=== PATIENT | female | born 1995 | race Caucasian/White ===

== ENCOUNTER 2017-10-17 12:11 | Emergency (ER) | payer MEDICAID ==
[~2017-10-17] VITALS: Ht 157.5 cm; Wt 74.9 kg
[~2017-10-17 12:11] MED LIST: CEPH-443 PO; IBUP-1542 PO; PREN1TAB9 PO
[2017-10-17 12:15] VITALS: Ht 157.5 cm; Wt 74.9 kg
--- NOTE | 2017-10-17 13:24 | ERD ---
ER Documentation Chief Complaint Chief Complaint Complains of dizziness x 2 days HPI 22y/o female patient with past medical history of positional vertigo since age 10, presents to the emergency department with her c/o sudden onset of dizziness, described as everything is spinning around, constant, that started 1 day ago. The symptoms are probably caused by allergies and cold and are associated with mild nausea. Aggravating factors: Sudden changes in position. Alleviating factors: eyes closed. Denies fever, chills, N/V/D. Positive history of previous episodes. Treatment attempted: None. Previous evaluation: None. ROS SYSTEMIC symptoms: no fever, chills, no night sweats, no weight loss EYE symptoms: No blurred vision, no eye discharge OTOLARYNGEAL symptoms: No hearing loss. No ear pain, no sore throat CARDIOVASCULAR symptoms: No chest pain or discomfort, no palpitations. PULMONARY symptoms: No dyspnea, no cough, no wheezing. GASTROINTESTINAL symptoms: No abdominal pain, no nausea, no vomiting, no diarrhea MUSCULOSKELETAL symptoms: No arthralgias, no muscle aches. NEUROLOGY symptoms: No confusion, no syncope, no numbness or tingling. SKIN no rashes Medications Home Meds Active Scripts Montelukast Sodium* (Montelukast Sodium*) 10 Mg Tablet, 10 MG PO QHS, #90 TAB Prov:PEYTON ZAMORA MD 10/17/17 Fluticasone Propionate* (Fluticasone Propionate* Nasal) 50 Mcg/[place] - 16 Gm [place].susp, 1 SPRAY NASAL BID, #1 BOTTLE TO EACH NOSTRIL Prov:PEYTON ZAMORA MD 10/17/17 Lorazepam* (Ativan*) 0.5 Mg Tablet, 0.5 MG PO Q8 for dizziness, #10 TAB Prov:PEYTON ZAMORA MD 10/17/17 Meclizine Hcl* (Antivert*) 12.5 Mg Tab, 12.5 MG PO Q6H Y for DIZZINESS, #30 TAB Prov:PEYTON ZAMORA MD 10/17/17 Ibuprofen* (Motrin*) 600 Mg Tab, 600 MG PO Q6, #20 TAB Prov:JUAN GARCIA PA-C 09/09/15 Cephalexin* (Keflex*) 500 Mg Capsule, 500 MG PO QID for 7 Days, CAP Prov:JUAN GARCIA PA-C 09/09/15 Reported Medications Vits W-Ca,Fe,Fa(<1MG) ( #2) 1 Tab Tablet, 1 TAB PO 02/06/14 Allergies Allergies: Coded Allergies: No Known Allergies (Unverified Allergy, Unknown, 09/09/15) PMhx/Soc History of Surgery: No Anesthesia Reaction: No Hx Neurological Disorder: No Hx Respiratory Disorders: No Hx Cardiac Disorders: No Hx Psychiatric Problems: No Hx Miscellaneous Medical Probl: No Hx Alcohol Use: No Hx Substance Use: No Hx Tobacco Use: No Smoking Status: Never smoker Physical Exam Vitals Vital Signs Date Time Temp Pulse Resp B/P Pulse Ox O2 Delivery O2 Flow Rate FiO2 10/17/17 12:15 97.9 79 20 118/68 98 Physical Exam Patient is in no acute distress, vital signs stable. Alert and fully oriented. EYES: PERRLA, EOMI, Sclera and conjunctiva appear normal. EARS: Canals clear, tympanic membranes WNL THROAT: Normal oropharynx. NECK: Supple, No lymphadenopathy. Full ROM without pain or tenderness. HEART: RRR, no rubs, murmurs, clicks or gallops. LUNGS: Clear to auscultation. ABDOMEN: Soft, non-tender without masses or hepatosplenomegaly. EXTREMITIES: No edema bilaterally. MUSC: Full ROM, no deformity, normal back exam. Neuro: Cranial nerves grossly intact, no motor or sensory deficit Procedures/MDM 22y/o male patient with history of positional vertigo, presents to the ED c/o spinning sensation is started today. Vital signs stable, Physical exam unremarkable, neurovascular. Differential diagnosis include but not limited to : Mnire's disease, vestibular neuronitis, migraine, vertigo, side effects of the medications, dehydration. Low suspicion for meningitis, [employer] tumor, stroke. Physical examination and clinical presentation consistent most likely with benign positional vertigo. During the ED course the patient remained stable and asymptomatic. Results and clinical impression discussed with patient who agrees with management. The patient is stable to be treated outpatient and will be discharged home with a Rx for meclizine, lorazepam, montelukast and Flonase Side effects of prescribed medications (headache, rash, nausea, vomiting, diarrhea) were reviewed. The patient was instructed to follow up with the primary care provider in the next 48h. If symptoms persist, worsen or new symptoms develop, then patient should return to the ED immediately. Instructions explained and given to patient in Kenyan with acknowledgment and demonstrated understanding. Disclaimer: Inadvertent spelling and grammatical errors are likely due to EHR/ dictation software use and do not reflect on the overall quality of patient care. Also, please note that the electronic time recorded on this note does not necessarily reflect the actual time of the patient encounter. Departure Diagnosis: Primary Impression: Benign paroxysmal positional vertigo Condition: Stable Additional Instructions: Muchas bethel por [facility] para aly servicio. Esperamos que en aly visita a la nile de emergencia aly problema medico haya sido solucionado y que se sienta mucho mejor. Para estar seguros que aly mejoria sigue en proceso, le pedimos el favor de hacer man edgar de seguimiento medico con aly doctor primario en los proximos 2-4 tracy. Lleve con usted estos documentos y las medicinas recetadas. Si gabrielle sintomas empeoran y no puede concepción a aly doctor, por favor regrese a nile de emergencia. En adam que usted no tenga un mdico de atencin primaria: Llame al mdico o clnica comunitaria de referencia que aparece abajo sania las horas de consultorio para hacer man edgar para que le vean. CLINICAS: [facility] [id number] [facility] [phone] [facility] [phone] [facility] [phone] [facility] [phone] [address] [facility]. [phone] MD Oct 17, 2017 13:24
[2017-10-17] MEDS ORDERED: FLUT16SP17 NASAL (13:27)
[2017-10-17] MEDS ORDERED: LORA-441 PO (13:27)
[2017-10-17] MEDS ORDERED: MONT10TA24 PO (13:27)
[2017-10-17] MEDS ORDERED: MECL12.574 PO (13:27)
== END 2017-10-17 13:58 | disposition home or self-care (01) ==
LOC: FTE 12:11
DX: H81.10 Benign paroxysmal vertigo, unspecified ear (principal)

== ENCOUNTER 2018-04-16 22:55 | Emergency (ER) | END 2018-04-17 02:06 | disposition home or self-care (01) ==

== ENCOUNTER 2018-08-31 19:42 | Outpatient (CLI) | END 2018-08-31 21:17 | disposition home or self-care (01) ==

== ENCOUNTER 2018-09-08 10:21 | Inpatient (IN) | END 2018-09-12 18:47 | disposition home or self-care (01) | DRG 805 ==

== ENCOUNTER 2019-04-02 20:15 | Emergency (ER) | payer MEDICAID ==
[~2019-04-02] VITALS: Wt 80.1 kg
[~2019-04-02 20:15] MED LIST changes: +ACET500C5 PO; -IBUP-1542 PO
--- NOTE | 2019-04-02 20:21 | QN ---
Documentation Comment Medical screening exam initiated. Patient be seen by another provider. GHADA JHAVERI MD April 02, 2019 20:21
[2019-04-02 20:27] VITALS: BP 122/67
[2019-04-02] MEDS ORDERED: METHOCARBAMOL 750 MG TAB PO ONE (22:00)
[2019-04-02] MEDS ORDERED: IBUPROFEN 600 MG TAB PO ONE (22:00)
[2019-04-02] MEDS ORDERED: ACET-141 PO (23:58)
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
[2019-04-03 00:23] VITALS: PULSE 88; RESP 20
== END 2019-04-03 00:20 | disposition home or self-care (01) ==
LOC: FTE 20:15
DX: M54.6 Pain in thoracic spine (principal)
CPT/HCPCS: Z7502; Z7610; 99282